=== PATIENT | female | born 1970 | race Caucasian/White ===

== ENCOUNTER 2019-07-28 03:58 | Emergency (ER) | payer MEDICAID, OTHER ==
[~2019-07-28] VITALS: Ht 162.6 cm; Wt 65.8 kg
[2019-07-28] MEDS ORDERED: HYDR-500 PO (04:11)
[2019-07-28] MEDS ORDERED: SERT50TA PO (04:11)
[2019-07-28] MEDS ORDERED: LOSA100T31 PO (04:11)
[2019-07-28] MEDS ORDERED: ATEN-171 PO (04:11)
[2019-07-28] MEDS ORDERED: LEVO50TA66 PO (04:11)
--- NOTE | 2019-07-28 04:18 | NUR ---
Dr. Hurley at bedside for MSE.
--- NOTE | 2019-07-28 04:29 | NUR ---
Patient discharged to home in stable condition. Written and verbal after care instructions given. Patient verbalizes understanding of instructions. Stressed follow up or return to ER for worsening s/s. patient left with stable gait.
[2019-07-28 04:31] VITALS: BP 108/64
== END 2019-07-28 04:32 | disposition home or self-care (01) ==
LOC: ER 04:02
DX: L03.115 Cellulitis of right lower limb (principal); S81.801A Unspecified open wound, right lower leg, initial encounter; X58.XXXA Exposure to other specified factors, initial encounter; Y92.89 Other specified places as the place of occurrence of the external cause
CPT/HCPCS: A4663

== ENCOUNTER 2020-09-24 03:41 | Emergency (ER) | payer OTHER ==
[~2020-09-24] VITALS: Ht 170.2 cm; Wt 70.3 kg
[~2020-09-24 03:41] MED LIST: ATEN-171 PO; HYDR-500 PO; LEVO50TA66 PO; LOSA100T31 PO; SERT50TA PO
[2020-09-24] MEDS ORDERED: LET TOPICAL SOLUTION 8 ML UDC TP ONE (04:00)
[2020-09-24] MEDS ORDERED: LIDOCAINE HCL 2% 20 ML VIAL TP ONE (04:00)
[2020-09-24] MEDS ORDERED: SODIUM BICARBONATE 4.2 % (NEUT) 5 ML VIAL TP ONE (04:00)
[2020-09-24] MEDS ORDERED: LIDOCAINE HCL 2% 20 ML VIAL ONE (04:06)
[2020-09-24] MEDS ORDERED: SODIUM BICARBONATE 4.2 % (NEUT) 5 ML VIAL ONE (04:06)
[2020-09-24] MEDS ORDERED: LET TOPICAL SOLUTION 8 ML UDC ONE (04:17)
[2020-09-24] MEDS ORDERED: HYDROCODONE/APAP 10-325 MG TABLET PO ONE (04:45)
[2020-09-24] MEDS ORDERED: CLINDAMYCIN HCL 150 MG CAPSULE PO ONE (04:45)
[2020-09-24] MEDS ORDERED: HYDR-3980 PO (04:51)
[2020-09-24] MEDS ORDERED: CLIN300C12 PO (04:51)
--- NOTE | 2020-09-24 04:56 | NUR ---
PT WAS EVALUATED BY DR TANNER. I&D PROCEDURE WAS PERFORMED BY DR TANNER ON PT's LEFT ARMPIT ABSCESS AREA. PT TOLERATED TO PROCEDURE WITHOUT COMPLICATIONS. NO BLEEDING. GAUZE DRESSING APPLIED.
[2020-09-24] MEDS ORDERED: CLINDAMYCIN HCL 150 MG CAPSULE ONE (04:57)
[2020-09-24] MEDS ORDERED: HYDROCODONE/APAP 10-325 MG TABLET ONE (04:58)
--- NOTE | 2020-09-24 05:05 | NUR ---
PTWAS D/C'd TO HOME. D/C INSTRUCTIONS GIVEN TO THE PT BY DR TANNER.
[2020-09-24 05:07] VITALS: BP 133/71
== END 2020-09-24 05:08 | disposition home or self-care (01) ==
LOC: ER 03:47
DX: L02.412 Cutaneous abscess of left axilla (principal)
CPT/HCPCS: 10060; 99283; J3490 ×2; A4217; A4663

== ENCOUNTER 2020-10-14 00:40 | Emergency (ER) | payer OTHER ==
[~2020-10-14] VITALS: Ht 154.9 cm; Wt 72.6 kg
[~2020-10-14 00:40] MED LIST changes: +CLIN300C12 PO; +HYDR-3980 PO
[2020-10-14] MEDS ORDERED: PRED20TA PO (00:56)
--- NOTE | 2020-10-14 00:58 | NUR ---
Dr. Hernandez at bedside for MSE.
--- NOTE | 2020-10-14 01:03 | NUR ---
Patient given written and verbal discharge instructions. Patient verbalizes understanding of instructions. Patient is ambulatory with steady gait. Refuses offer of longterm placement. Patient given list of available shelters in surrounding area. Pt out of ER with steady gait, no acute signs of distress, VSS, all belongings taken.
[2020-10-14 01:05] VITALS: BP 155/100
== END 2020-10-14 01:05 | disposition home or self-care (01) ==
LOC: ER 00:43
DX: L40.8 Other psoriasis (principal); F32.9 Major depressive disorder, single episode, unspecified; Z79.899 Other long term (current) drug therapy; E03.9 Hypothyroidism, unspecified; Z79.890 Hormone replacement therapy
CPT/HCPCS: A4663

== ENCOUNTER 2021-04-24 11:23 | Emergency (ER) | payer OTHER ==
[~2021-04-24] VITALS: Ht 160 cm; Wt 68.0 kg
[~2021-04-24 11:23] MED LIST changes: +PRED20TA PO
[2021-04-24] MEDS ORDERED: MORPHINE SULFATE 4 MG/1 ML DISP.SYRIN IM ONE (11:45)
[2021-04-24] MEDS ORDERED: DIAZEPAM 2 MG TABLET PO ONE (11:45)
[2021-04-24] MEDS ORDERED: MORPHINE SULFATE 4 MG/1 ML DISP.SYRIN ONE (11:56)
[2021-04-24] MEDS ORDERED: DIAZEPAM 5 MG TABLET ONE (11:56)
[2021-04-24] MEDS ORDERED: HYDROCODONE/APAP 5-325MG TABLET ONE (12:04)
[2021-04-24] MEDS ORDERED: HYDROCODONE/APAP 5-325MG TABLET PO ONE (12:15)
[2021-04-24] MEDS ORDERED: HYDR-3972 PO (12:28)
[2021-04-24] MEDS ORDERED: CYCL10TA9 PO (12:28)
[2021-04-24 12:52] VITALS: BP 123/67
--- NOTE | 2021-04-24 12:52 | NUR ---
Patient discharged to home in stable condition. Written and verbal after care instructions given. Patient verbalizes understanding of instructions. Stressed follow up or return to ER for worsening s/s.
== END 2021-04-24 12:53 | disposition home or self-care (01) ==
LOC: ER 11:23
DX: G89.29 Other chronic pain (principal); M54.2 Cervicalgia; Z59.00 Homelessness unspecified
CPT/HCPCS: A4663; J2270

== ENCOUNTER 2021-07-10 19:37 | Emergency (ER) | payer OTHER ==
[~2021-07-10] VITALS: Ht 162.6 cm; Wt 65.8 kg
[~2021-07-10 19:37] MED LIST changes: +CYCL10TA9 PO; +HYDR-3972 PO
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
--- NOTE | 2021-07-10 20:22 | NUR ---
Dr. Galeas at bedside for MSE.
--- NOTE | 2021-07-10 20:28 | NUR ---
call placed to [facility] for Dr. Galeas to speak with the staff there. Daily states the charge nurse will call us back.
[2021-07-10] MEDS ORDERED: TDAP DIPH,PERTUSS,TET VAC/PF 0.5 ML DISP.SYRIN IM ONE ×2 (20:30→20:34)
[2021-07-10] MEDS ORDERED: VANCOMYCIN 1G/D5W 200 ML PIGGYBACK IV ONE (20:45)
[2021-07-10] MEDS ORDERED: CLINDAMYCIN HCL 150 MG CAPSULE PO ONE (20:45)
[2021-07-10] MEDS ORDERED: VANCOMYCIN IV 200 ML ONE (20:47)
[2021-07-10] MEDS ORDERED: CLINDAMYCIN HCL 150 MG CAPSULE ONE (21:11)
--- NOTE | 2021-07-10 22:35 | NUR ---
Patient went to restroom. Able to ambulate with steady gait
[2021-07-10] MEDS ORDERED: CLIN300C12 PO (22:51)
[2021-07-10] MEDS ORDERED: IBUP-1955 PO (22:51)
[2021-07-10 23:02] VITALS: BP 140/80
== END 2021-07-10 22:54 | disposition home or self-care (01) ==
LOC: ER 19:38
DX: T23.201A Burn of second degree of right hand, unspecified site, initial encounter (principal); T31.0 Burns involving less than 10% of body surface; X15.8XXA Contact with other hot household appliances, initial encounter; Y92.89 Other specified places as the place of occurrence of the external cause; L03.123 Acute lymphangitis of right upper limb; F17.210 Nicotine dependence, cigarettes, uncomplicated; E03.9 Hypothyroidism, unspecified; Z79.890 Hormone replacement therapy; I10 Essential (primary) hypertension; Z79.899 Other long term (current) drug therapy
CPT/HCPCS: 90471; 90715; 96365; 99284; J3370; A4663

== ENCOUNTER 2021-10-03 11:06 | Emergency (ER) | payer MEDICAID, OTHER ==
[~2021-10-03] VITALS: Ht 160 cm; Wt 70.8 kg
[~2021-10-03 11:06] MED LIST changes: +IBUP-1955 PO
[2021-10-03] MEDS ORDERED: PRED50TA PO (12:55)
[2021-10-03] MEDS ORDERED: FAMO40TA71 PO (12:55)
[2021-10-03] MEDS ORDERED: DIPH25CA83 PO (12:55)
[2021-10-03 14:04] VITALS: BP 121/98
== END 2021-10-03 14:06 | disposition home or self-care (01) ==
LOC: ER 11:06
DX: T78.3XXA Angioneurotic edema, initial encounter (principal); E03.9 Hypothyroidism, unspecified; Z79.899 Other long term (current) drug therapy; Z79.890 Hormone replacement therapy
CPT/HCPCS: A4663

== ENCOUNTER 2021-10-27 10:41 | Emergency (ER) | payer MEDICAID, OTHER ==
[~2021-10-27] VITALS: Ht 154.9 cm; Wt 72.6 kg
[~2021-10-27 10:41] MED LIST changes: +DIPH25CA83 PO; +FAMO40TA71 PO; +PRED50TA PO
[2021-10-27] MEDS ORDERED: ACYC400T19 PO (11:38)
== END 2021-10-27 11:52 | disposition home or self-care (01) ==
LOC: ER 10:43
DX: B00.1 Herpesviral vesicular dermatitis (principal); E03.9 Hypothyroidism, unspecified; Z79.890 Hormone replacement therapy; Z59.00 Homelessness unspecified
CPT/HCPCS: A4663

== ENCOUNTER 2021-11-10 10:38 | Emergency (ER) | payer OTHER ==
[~2021-11-10] VITALS: Ht 154.9 cm; Wt 72.6 kg
[~2021-11-10 10:38] MED LIST changes: +ACYC400T19 PO
[2021-11-10] MEDS ORDERED: IBUP-1953 PO ×2 (11:46→11:57)
[2021-11-10] MEDS ORDERED: LIDO100S11 PO (11:46)
[2021-11-10] MEDS ORDERED: PERM60CR4 TP (11:51)
[2021-11-10] MEDS ORDERED: [UNRECOGNIZED DRUG - CODE] PO (11:57)
[2021-11-10] MEDS ORDERED: LIDOCAINE VISCUS 2% 15 ML UDC MM ONE (12:00)
[2021-11-10] MEDS ORDERED: LIDOCAINE VISCUS 2% 15 ML UDC ONE (12:05)
--- NOTE | 2021-11-10 12:08 | NUR ---
Patient discharged to home in stable condition with brisk steady gait. Written and verbal after care instructions given. Patient verbalized understanding and compliance of instructions. Stressed follow up with primary doctor or return to ER for worsening s/s.
== END 2021-11-10 12:09 | disposition home or self-care (01) ==
LOC: ER 10:38
DX: K12.0 Recurrent oral aphthae (principal); K13.79 Other lesions of oral mucosa
CPT/HCPCS: A4663